=== PATIENT | female | born 1980 ===

== ENCOUNTER 2016-09-09 14:33 | Emergency (ER) | payer SELFPAY ==
[2016-09-09 17:02] VITALS: BMI 32.8
[2016-09-09 17:09] LABS: BASO # 0.1 K/uL (0.0-0.2); BASO % 0.6 % (0.0-2.0); EOS % 0.3 % (0.0-4.0); HEMOGLOBIN 11.9 g/dL (12.0-16.0); LYMPH # 1.5 K/uL (1.0-4.3); LYMPH % 14.8 % (20.0-40.0); MEAN CELL VOLUME 98.4 fl (81.0-99.0); MEAN CORPUSCULAR HEMOGLOBIN 32.3 pg (27.0-31.0); MEAN CORPUSCULAR HGB CONC 32.8 g/dL (33.0-37.0); MEAN PLATELET VOLUME 11.8 fl (7.2-11.7); MONO # 0.5 K/uL (0.0-0.8); MONO % 4.8 % (0.0-10.0); NEUT # 8.1 K/uL (1.8-7.0); NEUT % 79.5 % (50.0-75.0); RBC 3.68 Mil/uL (3.80-5.20); RED CELL DISTRIBUTION WIDTH 15.1 % (11.5-14.5); WHITE BLOOD COUNT 10.2 K/uL (4.8-10.8)
[2016-09-09 17:27] LABS: ALB/GLOB RATIO 1.2 (1.0-2.1); ALBUMIN 3.7 g/dL (3.5-5.0); ALT/SGPT 38 U/L (9-52); AST/SGOT 25 U/L (14-36); BLOOD UREA NITROGEN 9 mg/dl (7-17); CALCIUM 9.3 mg/dL (8.4-10.2); GFR AFRICAN-AMERICAN > 60; GFR NON-AFRICAN AMERICAN > 60
[2016-09-09 22:02] VITALS: BP 107/59; PULSE 72; RESP 20; TEMP 98.3; O2SAT 98
--- NOTE | 2016-09-10 10:37 | OBHP ---
Datetime: 09/09/2016 15:26 IP Adm Impression: No Active Labor; Intact Membranes IP Chief Complaint Other: nausea/dizziness IP Admit Plan: Discharge home Admit Comment, IP Provider: A 35 y/o F , 26 weeks GA, LMP 03/09/16, KEYLA: 12/14/16 confirmed w/ u/s comes to the ED c/o nausea, sweating and dizziness for an hour, which started at 130pm. - negative LOF/CTX/VB, + FM - pt denies any symptomes at this time -BP 123/71, FHR 140 -ROS: unremarkable -PNC: [facility], seen on 08/26 and u/s on 09/04 -PNI: uncomplicated so far, no abnormal labs as per pt -POBH: 2 spontaneous abortions at 8 wks in 2011, and 2015 -PGYN: fibroids -PMH: none -Allergies: penicillin (Rash, itchiness) -PSH: tonsillectomy and appendectomy -Meds: PNV -SocialH: no A/S/D A: A 35 y/o F , 26 weeks GA, LMP 03/09/16, KEYLA: 12/14/16 comes to the ED c/o nausea, sweating and d izziness for an hour, which started at 130pm. P: - will monitor VS and FHR - f/u CBC and CMP - case discussed with Dr. Honorio Morales, PGY-1 Addendum: I saw on exam patient at presentation and at follow-up. Both maternal well-being and well-be ing reassuring at this time. Patient discharged home. Patient will follow-up with care as al ready scheduled. Honorio Extremities - PN: Normal Abdomen - PN: Normal Lungs - PN: Normal Heart - PN: Normal Neurologic - PN: Normal General - PN: Normal FHR - Baseline A Provider: 140 Gestation - Est Wks by US: 26.0 EGA AdmitDate IP: 26.2 Vital Signs Provider: Reviewed IP Chief Complaint: Other
== END 2016-09-09 18:00 | disposition home or self-care (01) ==
LOC: H.EROB2 14:33
DX: O21.0 Mild hyperemesis gravidarum (principal); R42 Dizziness and giddiness; Z3A.26 26 weeks gestation of pregnancy